=== PATIENT | female | born 1995 | race African-American/Black ===

== ENCOUNTER 2016-06-22 22:40 | Emergency (ER) | payer OTHER ==
--- NOTE | ~2016-06-22 | CR72 ---
[facility] A Service of [facility] & [facility] RADIOLOGY TEXT RESULTS PATIENT: SARKIS SMITH LOCATION: CFTX : [id number] UNIT #: [id number] AGE: [address]: JOSE ALFREDO NICKERSON APRN SEX: F ORDER DR: [id number] [facility] [address] [place], [place] [address] [id number] E MR#: [id number] Acc #: [id number] NAME: SARKIS SMITH. : 1995 SEX: F STUDY DATE/TIME: 06/22/2016 23:40 UNIT: [facility] ROOM: STUDY DESCRIPTION: CR Chest Single View Portable Attending Physician: Jose Alfredo Nickerson Aprn Ordering Physician: Jose Alfredo Nickerson Aprn Primary Care Physician: Markie Polo M.D. MEDICAL IMAGING REPORT This report is preliminary unless electronic signature is present EXAM Portable AP view of the chest COMPARISON August 07, 2008. INDICATION 21-year-old female with chest tightness, chest mucous and sore throat since yesterday. Fever. FINDINGS Cardiomediastinal silhouette is within normal limits. There is no pneumothorax, pleural effusion or acute airspace disease. IMPRESSION Normal exam. Dictated by... Modesto Sanchez M.D. THIS IS AN ELECTRONICALLY VERIFIED REPORT Modesto Sanchez M.D. at 06/27/2016 10:49 AM COLE/jak TD: 06/23/2016 08:16 JOB #: [id number] MEDICAL IMAGING REPORT COPY
[2016-06-22 21:21] LABS: INFLUENZA A NEG (NEG); INFLUENZA B NEG (NEG)
[~2016-06-22 22:40] MED LIST: ADVAIR 2501 DISK W/D INH; ALBUTEROL17 GM INH; AUGMENTIN PO; BENADRYL PO; CILOXAN3.5 GM OP; COMBIVENT MININEB INH; DIFLUCAN200 MG PO; FLONASE16 GM; IBUPROFEN PO; NASONEX17 GM; NO MEDICATIONS; PHENERGAN25 MG PO; ROBITUSSIN ALL118 ML PO; SINGULAIR PO; ZYRTEC PO; [UNRECOGNIZED DRUG - OTHER]
[2016-06-22 23:52] LABS: URINE APPEARANCE CLEAR; URINE BILIRUBIN NEG (NEG); URINE BLOOD NEG (NEG); URINE COLOR YELLOW; URINE GLUCOSE NEG (NEG); URINE KETONE 1+ (NEG); URINE LEUKOCYTE ESTERASE NEG (NEG); URINE NITRATE NEG (NEG); URINE PH 6.5 (5-8); URINE PROTEIN NEG (NEG); URINE SPECIFIC GRAVITY 1.027 (1.003-1.035)
[2016-06-22 23:56] LABS: CULTURE INDICATED? NO
== END 2016-06-23 01:00 | disposition home or self-care (01) ==
LOC: CFTX 22:40
PROVIDERS: Nurse Practitioner Family
DX: J06.9 Acute upper respiratory infection, unspecified (principal); J45.909 Unspecified asthma, uncomplicated
CPT/HCPCS: 71010; 81003; 84703; 87651; 87804; 99283